=== PATIENT | male | born 1985 | race Caucasian/White ===

== ENCOUNTER 2018-01-24 19:02 | Emergency (ER) | payer MEDICAID ==
[~2018-01-24] VITALS: Ht 185.4 cm; Wt 72.7 kg
[2018-01-24 19:09] VITALS: Ht 185.4 cm; Wt 72.7 kg
[2018-01-24 20:03] LABS: APPEARANCE CLEAR (CLEAR); BILIRUBIN NEGATIVE (NEGATIVE); COLOR YELLOW (YELLOW); GLUCOSE NEGATIVE (NEGATIVE); KETONE NEGATIVE (NEGATIVE); NITRITE NEGATIVE (NEGATIVE); PROTEIN NEGATIVE (NEGATIVE); UROBILINOGEN NORMAL (NORMAL)
[2018-01-24 20:04] LABS: RED CELLS - URINE 0-5 /hpf (0-5); WHITE CELLS - URINE OCC /hpf (0-5)
[2018-01-24] MEDS ORDERED: CLOTRIM ANTIFUN15 GM TOPICAL (20:43)
[2018-01-24 21:36] VITALS: BP 110/72
[2018-01-28 22:07] LABS: CHLAMYDIA TRACHOMATIS, NAA Negative (Negative)
== END 2018-01-24 21:36 | disposition home or self-care (01) ==
LOC: D.ER 19:02
PROVIDERS: Emergency Medicine
DX: N48.89 Other specified disorders of penis (principal); N50.812 Left testicular pain

== ENCOUNTER 2018-07-14 08:08 | Emergency (ER) | payer SELFPAY ==
[~2018-07-14] VITALS: Ht 185.4 cm; Wt 77.3 kg
[~2018-07-14 08:08] MED LIST: CLOTRIM ANTIFUN15 GM TOPICAL
[2018-07-14 08:11] VITALS: Ht 185.4 cm; Wt 77.3 kg
[2018-07-14 08:48] VITALS: BP 139/73
== END 2018-07-14 08:49 | disposition home or self-care (01) ==
LOC: D.ER 08:08
DX: K40.90 Unilateral inguinal hernia, without obstruction or gangrene, not specified as recurrent (principal)

== ENCOUNTER 2019-02-02 10:43 | Emergency (ER) | payer BC ==
[~2019-02-02] VITALS: Ht 185.4 cm; Wt 77.3 kg
[2019-02-02 10:52] VITALS: Ht 185.4 cm; Wt 77.3 kg
[2019-02-02 12:01] LABS: BASOPHILS 0.2 % (0-2); EOSINOPHILS 1.8 % (0-7); HEMATOCRIT 43.4 % (42.0-54.0); HEMOGLOBIN 15.4 g/dL (13.5-17.5); IMMATURE GRANULOCYTES 0.2 % (0-5); LYMPHOCYTES 19.9 % (15-50); MCH 33.4 pg (26.0-34.0); MCHC 35.5 g/dL (31.0-37.0); MCV 94.1 fL (80.0-100.0); MEAN PLATELET VOLUME 10.5 fL (7.4-10.4); MONOCYTES 6.8 % (2-11); NEUTROPHILS 71.1 % (40-80); PLATELET COUNT 249 10x3/uL (130-400); RBC 4.61 10x6/uL (4.20-6.10); RDW 12.9 % (11.5-14.5); WBC 6.1 10x3/uL (4.8-10.8)
[2019-02-02 12:13] LABS: ALBUMIN 3.9 g/dL (3.4-5.0); ALKALINE PHOSPHATASE 113 U/L (46-116); ALT (SGPT) 36 U/L (10-68); BILIRUBIN - TOTAL 0.94 mg/dL (0.2-1.3); CALC OSMOLALITY 283 mosm/kg (275-300); CALCIUM 9.2 mg/dL (8.5-10.1); CARBON DIOXIDE 29.7 mmol/L (21.0-32.0); CHLORIDE - SERUM 104 mmol/L (98-107); CREATININE - SERUM 0.9 mg/dL (0.6-1.3); GLUCOSE 108 mg/dL (74-106); PROTEIN - SERUM 7.4 g/dL (6.4-8.2); SODIUM 141 mmol/L (136-145); UREA NITROGEN 18 mg/dL (7-18); eGFR NON AFRICAN AMERICAN > 90 mL/min (90-120)
[2019-02-02 15:53] VITALS: BP 120/76
== END 2019-02-02 15:54 | disposition home or self-care (01) ==
LOC: D.ER 10:43
PROVIDERS: Family Medicine
DX: K42.9 Umbilical hernia without obstruction or gangrene (principal)